=== PATIENT | male | born 2000 | race African-American/Black ===

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

== ENCOUNTER 2018-06-29 14:43 | Emergency (ER) | payer OTHER ==
[2018-06-29 15:09] VITALS: BP 111/62
[2018-06-29] MEDS ORDERED: NAPROXEN 250 MG TABLET PO STA (15:13)
[2018-06-29] MEDS ORDERED: BENZONATATE 100 MG CAPSULE PO STA (15:46)
--- NOTE | 2018-06-29 15:48 | ED Physician Documentation ---
PD HPI URI - Stated complaint Stated Complaint: SORE THROAT/COUGH - Chief complaint Chief Complaint: Heent - Additional information Additional information: 18-year-old male presents the emergency department with several days of nasal congestion, sore throat, cough, body aches and general fatigue. The patient is actually feeling better but has the ongoing cough. No reports of respiratory distress or difficulty breathing. Symptoms are described as mild. Review of Systems Constitutional: reports: Myalgias, Fatigue Eyes: denies: Discharge Ears: denies: Ear pain Nose: reports: Congestion Throat: reports: Sore throat Cardiac: denies: Chest pain / pressure Respiratory: reports: Cough. denies: Dyspnea, Wheezing Skin: denies: Rash Musculoskeletal: denies: Neck pain Neurologic: denies: Generalized weakness Immunocompromised: denies: Chemotherapy PD PAST MEDICAL HISTORY - Past Medical History Past Medical History: Yes GI: Ulcers - Past Surgical History Past Surgical History: Yes General: EGD - Present Medications Home Medications: Ambulatory Orders Medication Instructions Recorded Confirmed Benzonatate [Tessalon Perle] 100 mg PO TID PRN #30 capsule 06/29/18 - Allergies Allergies/Adverse Reactions: Allergies Allergy/AdvReac Type Severity Reaction Status Date / Time No Known Drug Allergies Allergy Verified 06/29/18 15:09 - Social History Does the pt smoke?: Yes Smoking Status: Current every day smoker Does the pt drink ETOH?: Yes Does the pt have substance abuse?: No - Immunizations Immunizations are current?: Yes PD ED PE NORMAL - General General: Alert and oriented X 3, No acute distress - HEENT HEENT: Atraumatic, PERRL, EOMI, Ears normal, Moist mucous membranes, Pharynx benign - Neck Neck: Supple, no meningeal sign - Cardiac Cardiac: RRR, Strong equal pulses - Respiratory Respiratory: No respiratory distress, Clear bilaterally - Derm Derm: Normal color - Extremities Extremities: No deformity - Neuro Neuro: Alert and oriented X 3, Normal speech - Psych Psych: Normal affect Results - Vitals Vitals: Vital Signs - 24 hr 06/29/18 15:01 Temperature 36.8 C Heart Rate 90 Respiratory 18 Rate Blood Pressure 111/62 O2 Saturation 97 Oxygen O2 Source Room air - Labs Labs: Laboratory Tests 06/29/18 15:24 Group A Strep Rapid Negative PD MEDICAL DECISION MAKING - ED course ED course: Well-appearing, nontoxic and well-hydrated male who appears to be in no acute distress. The patient appears to have a resolving upper respiratory tract infection and appears appropriate for discharge with ongoing outpatient management. I discussed warning signs and recommended returning for any worsening or concerns Departure - Departure Disposition: 01 Home, Self Care Clinical Impression: Viral URI with cough Condition: Good Instructions: ED Upper Resp Infec No Abx Tx Follow-Up: [facility] [Provider Group] Prescriptions: Benzonatate [Tessalon Perle] 100 mg PO TID PRN #30 capsule PRN Reason: Cough
== END 2018-06-29 16:32 | disposition home or self-care (01) ==
LOC: ED 14:43
DX: J06.9 Acute upper respiratory infection, unspecified (principal); F17.200 Nicotine dependence, unspecified, uncomplicated
CPT/HCPCS: 87070; 87430; 99283; A9270

== ENCOUNTER 2019-06-18 18:59 | Emergency (ER) | payer OTHER ==
[2019-06-18 19:09] VITALS: BP 117/59
[2019-06-18] MEDS ORDERED: BUFFERED LIDOCAINE 10 ML SYRINGE SUBQ STA (19:17)
[2019-06-18] MEDS ORDERED: cephALEXin 250 MG CAPSULE PO STA (19:22)
--- NOTE | 2019-06-18 19:22 | ED Physician Documentation ---
History of Present Illness - Stated complaint Stated Complaint: RT BIG TOE NAIL INGROWN - Chief complaint Chief Complaint: General - History obtained from History obtained from: Patient - History of Present Illness Timing: Chronic (This is a 19-year-old gentleman who has recurrent ingrown toenails. He presents with a four-month history of an ingrown toenail of both sides of the right great toe, worse on the lateral side than the medial side.) Review of Systems Constitutional: reports: Reviewed and negative Cardiac: reports: Reviewed and negative Respiratory: reports: Reviewed and negative PD PAST MEDICAL HISTORY - Past Medical History Past Medical History: Yes GI: Ulcers - Past Surgical History Past Surgical History: Yes General: EGD - Present Medications Home Medications: Ambulatory Orders Medication Instructions Recorded Confirmed Cephalexin [Keflex] 500 mg PO Q6H #28 capsule 06/18/19 - Allergies Allergies/Adverse Reactions: Allergies Allergy/AdvReac Type Severity Reaction Status Date / Time No Known Drug Allergies Allergy Verified 06/18/19 19:09 - Social History Does the pt smoke?: Yes Smoking Status: Former smoker Does the pt drink ETOH?: Yes Does the pt have substance abuse?: No - Immunizations Immunizations are current?: Yes PD ED PE NORMAL - Vitals Vital signs reviewed: Yes - General General: Alert and oriented X 3, No acute distress (The) - Extremities Extremities: Other ( right toenail has Ingrown with infection on the lateral side mildly ingrown on the medial side.) - Neuro Neuro: Alert and oriented X 3, Normal speech Results - Vitals Vitals: Vital Signs - 24 hr 06/18/19 19:07 Temperature 36.8 C Heart Rate 83 Respiratory 16 Rate Blood Pressure 117/59 L O2 Saturation 99 Oxygen O2 Source Room air Procedures - General procedure General procedure: After verbal informed consent the right great toe was anesthetized with a di gital block with buffered lidocaine in standard fashion, then both sides of the toe were excised linearly using sharp dissection and the patient tolerated this very well. Departure - Departure Disposition: 01 Home, Self Care Clinical Impression: Ingrown toenail Condition: Good Record reviewed to determine appropriate education?: Yes Instructions: ED Ingrown Toenail Excised Prescriptions: Cephalexin [Keflex] 500 mg PO Q6H #28 capsule Comments: Wound check with your doctor in 1 week. Return for new or worsening symptoms.
== END 2019-06-18 19:51 | disposition home or self-care (01) ==
LOC: ED 18:59
DX: L60.0 Ingrowing nail (principal); L08.9 Local infection of the skin and subcutaneous tissue, unspecified; Z87.891 Personal history of nicotine dependence
CPT/HCPCS: 11765; 99282; 99283; A9270

== ENCOUNTER 2019-12-30 15:24 | Outpatient (CLI) | payer OTHER | END 2019-12-30 15:25 | disposition EMS.NT | LOC: EMS 15:24 | PROVIDERS: ATTEND Surgery | DX: M54.2 Cervicalgia (principal); M54.6 Pain in thoracic spine ==

== ENCOUNTER 2020-10-04 15:08 | Emergency (ER) | payer OTHER ==
[2020-10-04 15:20] VITALS: BP 115/69
[2020-10-04] MEDS ORDERED: BUFFERED LIDOCAINE 10 ML SYRINGE SUBQ STA (15:21)
[2020-10-04] MEDS ORDERED: SILVER NITRATE APPLICATOR TOP STA (15:29)
--- NOTE | 2020-10-04 15:29 | ED Physician Documentation ---
History of Present Illness - Stated complaint Stated Complaint: BI LAT FOOT PX - Chief complaint Chief Complaint: Ext Problem - History obtained from History obtained from: Patient (He has longstanding issues with ingrown toenails, the lateral surface of the left great toe and the medial surface of the right great toe are both ingrown and inflamed. No fevers.) Review of Systems Constitutional: reports: Reviewed and negative Eyes: reports: Reviewed and negative Ears: reports: Reviewed and negative Nose: reports: Reviewed and negative PD PAST MEDICAL HISTORY - Past Medical History GI: Ulcers - Past Surgical History Past Surgical History: Yes General: EGD - Present Medications Home Medications: Ambulatory Orders Medication Instructions Recorded Confirmed cephALEXin [Keflex] 500 mg PO Q6H #28 cap 10/04/20 - Allergies Allergies/Adverse Reactions: Allergies Allergy/AdvReac Type Severity Reaction Status Date / Time No Known Drug Allergies Allergy Verified 10/04/20 15:20 - Social History Does the pt smoke?: Yes Smoking Status: Former smoker Does the pt drink ETOH?: Yes Does the pt have substance abuse?: No - Immunizations Immunizations are current?: Yes PD ED PE NORMAL - Vitals Vital signs reviewed: Yes - General General: Alert and oriented X 3, No acute distress - Extremities Extremities: Other (He has ingrown toenails with infection on the lateral surface of left great toe and the medial surface of the right great toe.) - Neuro Neuro: Alert and oriented X 3, Normal speech Results - Vitals Vitals: Vital Signs - 24 hr 10/04/20 15:19 Temperature 37.1 C Heart Rate 74 Respiratory 14 Rate Blood Pressure 115/69 O2 Saturation 98 Oxygen O2 Source Room air Procedures - General procedure General procedure: Procedure note, right great ingrown toenail excision, the right great Toe was anesthetized using buffered lidocaine in standard fashion with a digital block. The medial diseased area of the nail was excised using sharp excision and cauterized the base with silver cautery. Dressings placed. Patient tolerated well. Procedure note, left great ingrown toenail excision: the left great Toe was anesthetized using buffered lidocaine in standard fashion with a digital block. The latera; diseased area of the nail was excised using sharp excision and cauterized the base with silver cautery. Dressings placed. Patient tolerated well. Departure - Departure Disposition: 01 Home, Self Care Clinical Impression: Ingrown toenail Condition: Good Instructions: ED Ingrown Toenail Excised Prescriptions: cephALEXin [Keflex] 500 mg PO Q6H #28 cap Comments: Keep the current dressing on for about 24 hours. After that you really just need to wash with soap and water and put Band-Aids on them until they are healed. In the future try not to culture toenails quite so short. Return as needed for new or worsening symptoms. [place] flight [place]. Forms: Activity restrictions
== END 2020-10-04 15:59 | disposition home or self-care (01) ==
LOC: ED 15:08
DX: L60.0 Ingrowing nail (principal); Z87.891 Personal history of nicotine dependence
CPT/HCPCS: 11750